=== PATIENT | female | born 2000 | race African-American/Black ===

== ENCOUNTER 2023-12-11 18:18 | Emergency (ER) | payer OTHER, SELFPAY ==
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
[2023-12-11 18:20] VITALS: BP 121/68; PULSE 85; RESP 16; TEMP 37.2; O2SAT 100
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
[2023-12-11 20:53] VITALS: BP 118/68; PULSE 78; RESP 14; O2SAT 100
== END 2023-12-11 20:55 | disposition home or self-care (01) ==
PROVIDERS: Emergency Provider Physician Assistant
DX: S86.911A Strain of unspecified muscle(s) and tendon(s) at lower leg level, right leg, initial encounter (principal); S09.93XA Unspecified injury of face, initial encounter; V49.40XA Driver injured in collision with unspecified motor vehicles in traffic accident, initial encounter
CPT/HCPCS: 70486; 73590; 99284